=== PATIENT | female | born 1955 | race Caucasian/White ===

== ENCOUNTER 2020-09-17 20:37 | Emergency (ER) | payer MEDICARE, OTHER, SELFPAY ==
[2020-09-17 20:38] VITALS: BP 167/96; PULSE 98; RESP 17; TEMP 36.7; O2SAT 99
--- NOTE | 2020-09-17 20:51 | ECG_ITS ---
Measurements Intervals Barnes Rate: 94 P: 64 NC: 153 QRS: 20 QRSD: 86 T: 40 QT: 348 QTc: 437 Interpretive Statements SINUS RHYTHM BORDERLINE ST ABNORMALITY- DIFFUSE LEADS BORDERLINE ECG Electronically Signed On 09-17-2020 21:31:10 CDT by Bob Coles D.O.
[2020-09-17 21:14] LABS: Basophils Percent Auto 0.6 % (0.2-1.2); Eosinophils Absolute Auto 0.2 K/mm3 (0-0.3); Eosinophils Percent Auto 3.6 % (0-4.4); Hematocrit 35.6 % (37.0-47.0); Hemoglobin 11.9 g/dL (12.0-15.0); Immature Granulocyte Absolute 0.01 K/mm3 (0.00-0.031); Immature Granulocyte Percent A 0.2 % (0-0.5); Lymphocytes Absolute Auto 1.72 K/mm3 (0.9-3.2); Lymphocytes Percent Auto 36.1 % (18.3-44.2); Mean Corpuscular HGB Conc 33.4 g/dl (32-36); Mean Corpuscular Hemoglobin 29.8 pg (26-34); Mean Corpuscular Volume 89.2 fl (80-100); Mean Platelet Volume 9.9 fl (7.4-10.4); Monocytes Absolute Auto 0.3 K/mm3 (0.1-0.6); Monocytes Percent Auto 7.1 % (2.6-8.5); Neutrophils Absolute Auto 2.5 K/mm3 (1.3-6.7); Neutrophils Percent Auto 52.4 % (45.5-73.1); Platelet Count Result 149 k/mm3 (150-375); Red Blood Count 3.99 M/mm3 (4.2-5.4); Red Cell Distribution Width 12.5 % (11.5-14.5); White Blood Count 4.8 K/mm3 (4.5-10.0)
[2020-09-17 21:23] LABS: Anion Gap 9 mmol/L (8-16); Blood Urea Nitrogen 17 mg/dL (7-17); Calcium 9.4 mg/dL (8.4-10.2); Carbon Dioxide 25 mmol/L (22-30); Chloride 106 mmol/L (98-107); Estimated CRCL calculation 45 ml/min; Estimated Glomerular Filt Rate 50; Glucose 111 mg/dL (65-105); Potassium 3.6 mmol/L (3.4-5.0); Sodium 140 mmol/L (137-145)
[2020-09-17 21:27] VITALS: BP 110/78; PULSE 78; RESP 20; O2SAT 100
[2020-09-17] MEDS: SODIUM CHLORIDE 0.9% IV 1,000 ML 999 ML IV CONT (21:40)
[2020-09-17 21:45] VITALS: BP 145/80; PULSE 88
[2020-09-17 21:50] VITALS: BP 168/98; PULSE 87
[2020-09-17 21:54] VITALS: BP 182/95; PULSE 82
--- NOTE | 2020-09-17 22:22 | ED.DIZZY ---
HPI - Dizziness General Chief Complaint: Dizziness Stated Complaint: dizziness Time Seen by Provider: 09/17/20 20:39 History of Present Illness HPI Narrative: Patient is a 64-year-old female who presents ER with lightheadedness. She was at a movie theater and got up to leave when she got lightheaded and thought she might pass out. No racing heart. No nausea/vomiting. Has not had similar symptoms in the past. Recently started metoprolol 25 mg. No chest pain or chest pressure. Patient reports she did not eat lunch or dinner today. She reports otherwise well hydrated. Related Data Allergies Allergy/AdvReac Type Severity Reaction Status Date / Time Cephalosporins Allergy Mild Unknown Verified 03/03/20 12:41 cephalexin Allergy Unknown Skin Verified 03/03/20 12:41 Reaction diclofenac Allergy Unknown Nausea Verified 03/03/20 12:41 nitrofurantoin Allergy Unknown Unknown Verified 03/03/20 12:41 Penicillins Allergy Unknown Skin Verified 03/03/20 12:41 Reaction Review of Systems Review of Systems: All systems reviewed & are unremarkable except as noted in HPI and below Constitutional: Constitutional: Denies chills, Denies fever(s) and Denies weakness ENT: Denies nasal congestion and Denies sore throat Cardiovascular: Cardiovascular: Denies chest pain and Denies radiating jaw, neck or arm pain Gastrointestinal: Gastrointestinal: Denies abdominal pain, Denies nausea and Denies vomiting Neurologic: Reports dizziness, Denies syncope, Denies headache(s), Denies focal weakness and Denies numbness PMFSH Past Medical History Medical History (Updated 09/17/20 @ 22:28 by Woo Mcdaniel MD) Muscle contraction headache syndrome Prehypertension Surgical History Surgical History History of colonoscopy (~03/02/13) History of colonoscopy (~01/26/08) History of dilation and curettage Family History Family History Other Family history of cardiovascular disease Family history of elevated blood lipids Social History Social History Gender identity (if verbalized by the patient): Female Exam Narrative: Exam Narrative: GENERAL: Well-appearing, well-nourished, and in no acute distress. HEAD: Normocephalic, atraumatic. CHEST: Clear to auscultation. No respiratory distress. HEART: Regular rate and rhythm. Normal peripheral pulses. ABDOMEN: Soft, nontender, nondistendeds. EXTREMITIES: Normal range of motion. No edema. SKIN: Warm, dry, no rash. NEURO: Alert and oriented x3. PSYCH: Normal mood and affect. Course Course Emergency Course: Feels improved with IV fluid. Encouraged proper hydration and nourishment at home. Patient did have some nonspecific ST depression but has no chest pain or chest pressure to otherwise indicate ACS. Patient be discharged home. Vital Signs Vital signs: Vital Signs Temperature 98.1 F 09/17/20 20:38 Pulse Rate 98 09/17/20 20:38 Respiratory Rate 17 09/17/20 20:38 Blood Pressure 167/96 H 09/17/20 20:38 Pulse Oximetry 99 09/17/20 20:38 Temperature 98.1 F 09/17/20 20:38 Pulse Rate 82 09/17/20 21:54 Respiratory Rate 20 09/17/20 21:27 Blood Pressure 182/95 H 09/17/20 21:54 Pulse Oximetry 100 09/17/20 21:27 MDM - Dizziness Lab Data Result diagrams: 09/17/20 21:07 09/17/20 21:07 Labs: Lab Results 09/17/20 09/17/20 Range/Units 21:07 21:07 WBC 4.8 (4.5-10.0) K/mm3 RBC 3.99 L (4.2-5.4) M/mm3 Hgb 11.9 L (12.0-15.0) g/dL Hct 35.6 L (37.0-47.0) % MCV 89.2 (80-100) fl MCH 29.8 (26-34) pg MCHC 33.4 (32-36) g/dl RDW 12.5 (11.5-14.5) % Plt Count 149 L (150-375) k/mm3 MPV 9.9 (7.4-10.4) fl Immature Gran % (Auto) 0.2 (0-0.5) % Neut % (Auto) 52.4 (45.5-73.1) % Lymph % (Auto) 36.1 (18.3-44.2) % Brooke % (Auto)
== END 2020-09-17 22:53 | disposition home or self-care (01) ==
PROVIDERS: Emergency Provider Emergency Medicine; PCP Family Medicine
DX: R42 Dizziness and giddiness (principal)
CPT/HCPCS: 36415; 80048; 85025; 93005; 96360; 99284; J7030

== ENCOUNTER → 2021-08-03 15:45 | Outpatient (CLI) | payer MEDICARE, OTHER, SELFPAY ==
--- NOTE | ~2021-08-03 | DEXA_ITS ---
Bone Density Report Name: JOHNSON TSAI Age: 65 Sex: Female Ethnicity: White Date of : 1955 Indication: osteopenia; height loss; prior fracture; postmenopausal Referring Provider: FERNANDO REDDY Study: Bone densitometry was performed. Exam Date: August 03, 2021 Accession number: [id number] Bone Density: Region BMD T-score Z-score Classification AP Spine (L1-L4) 0.984 -0.6 1.4 Normal Femoral Neck (Left) 0.627 -2.0 -0.3 Osteopenia Total Hip (Left) 0.734 -1.7 -0.3 Osteopenia Femoral Neck (Right) 0.630 -2.0 -0.3 Osteopenia Total Hip (Right) 0.696 -2.0 -0.6 Osteopenia Total Hip Mean 0.715 -1.9 -0.5 Osteopenia World Health Organization criteria for BMD impression classify patients as: Normal (T-score at or above -1.0), Osteopenia (T-score between -1.0 and -2.5), or Osteoporosis (T-score at or below -2.5). 10-year Fracture Risk(1): Major Osteoporotic Fracture 18% Hip Fracture 2.8% Reported Risk Factors: [place] (), Neck BMD=0.630, BMI=27.4, previous fracture (1) FRAX(R) Version 3.08. Fracture probability calculated for an untreated patient. Fracture probability may be lower if the patient has received treatment. Previous Exams: Region Exam Age BMD T-score BMD Change BMD Change Date g/cm2 vs Baseline vs Previous AP Spine(L1-L4) 08/03/2021 65 0.984 -0.6 -0.047* -0.047* 02/05/2012 56 1.031 -0.1 Total Hip(Left) 08/03/2021 65 0.734 -1.7 0.001 0.001 02/05/2012 56 0.733 -1.7 Total Hip(Right) 08/03/2021 65 0.696 -2.0 0.021 0.021 02/05/2012 56 0.675 -2.2 *Denotes significance at 95% confidence level, LSC for AP Spine = 0.022 g/cm2, LSC for Total Hip = 0.027 g/cm2 Clinical Information Provided by Patient: Has had a low trauma fracture Has used the following medications: Vitamin D Patient maximum height was 68 Menopause Age: 38 No regular weight bearing exercise Does not regularly consume dairy products Onset of menses at age 13 Number of children 0 Missed period for more than 6 months in a row Impression: The patient has low bone mass, based on the Right Total Hip T-score. The patient has an estimated ten-year risk of hip fracture of 2.8% and an estimated ten-year risk of major fracture of 18%, based on the WHO FRAX algorithm. The patient has risk factors, including: previous fracture. The BMD for the AP Spine(L1-L4) decreased, changing by -0.047 since the last
== END ==
PROVIDERS: PCP Family Medicine; Visit Provider Family Medicine
DX: Z78.0 Asymptomatic menopausal state (principal); M85.852 Other specified disorders of bone density and structure, left thigh; M85.851 Other specified disorders of bone density and structure, right thigh
CPT/HCPCS: 77080

== ENCOUNTER 2024-04-14 07:59 | Outpatient (CLI) | payer MEDICARE, OTHER, SELFPAY ==
--- OUTSIDE RECORDS SUMMARY | 2024-04-14 08:09 | XMS_ITS | Data Portability ---
Author Organization [facility] Address [address] [place] [address] Assessment No assessment recorded. Plan of Treatment Reminders Order Date Submit Date Provider Last Modified By Organization Details Last Modified Time Details Appointments None recorded. Lab culture, urine 2016 017 [facility], [address], [place], [address], 7 10:35:32 urinalysi s, dipstick 2016 017 dante In-Office Order, Internal Use Only DO Not Attach Compendium DO Not Attach Compendium, Do Not Delete/merge, [id number] 7 17:59:59 pap, IG + HPV, cervical 2016 017 [facility], [address] [facility], [address], [place], [address], 7 06:05:37 urinalysi s, dipstick 2018 019 [email or web address] In-Office Order, Internal Use Only DO Not Attach Compendium DO Not Attach Compendium, Do Not Delete/merge, [id number] 9 17:28:12 Referral breast surgery referral 2018 019 [facility], [address] [facility], [facility], [place], [address], 9 13:44:21 Procedures None recorded. Surgeries None recorded. Imaging DEXA 07/22/ 2019 05/04/2 020 [facility], [address], [place], [address], 0 12:24:47 Medication Orders Premarin 0.625 mg/gram vaginal cream 2015 016 INTERFACE [facility], [address] [place] [address], [address], 6 18:41:25 Activella 0.5 mg-0.1 mg tablet 2016 017 [email or web address] [facility], [address] [place] [address], [address], 9 16:52:59 raloxifen e 60 mg tablet 2018 019 [facility], [address] [place] [address], [address], 9 17:45:53 Premarin 0.625 mg/gram vaginal cream 2018 019 [facility], [address] [place] [address], [address], 9 17:05:53 ibandrona te 150 mg tablet 2018 019 [facility], [address] [place] [address], [address], 9 17:55:53 Patient TargetsNo targets recorded. Patient Instructions Encounter Date Encounter Id Patient Instructions Last Modified By Organization Details Last Modified Time 06/29/2015 [id number] atrophic vaginitis: care instructions dante Not available 06/29/2015 18:41:15 osteoporosis: care instructions dante Not available 06/29/2015 18:41:15 07/21/2018 [id number] Core Needle Breast Biopsy: About This Test dante Not available 07/21/2018 17:28:12 10/06/2018 [id number] osteoporosis: care instructions dante Not available 10/06/2018 17:01:18 Reason for Referral Breast Surgery Referral for Mammography abnormal Referring Physician: Melania Mora, ACETYLENE OPERATOR, Encounter Date: 07/21/2018 Results Created Date Observation Date Name Description Value Unit Range Abnormal Flag Note LastModifiedBy Organization Detail LastModifiedTime 07/22/19 19 07/21/2018 urina lysis , dipst ick Leukocytes Small Not Available In-Offi ce Order Internal Use Only DO Not Attach Compendium DO Not Attach Compendium, Do Not Delete/merge, [id number] 07/21/2018 17:06:10 07/22/1907/21/2018 urina lysis , dipst ick Nitrite negati ve Not Available In-Office Order Internal Use Only DO Not Attach Compendium DO Not Attach Compendium, Do Not Delete/merge, 07/21/2018 17:06:10 07/22/1907/21/2018 urina lysis , dipst ick Urobilinogen .2 Not Available In-Of fice Order Internal Use Only DO Not Attach Compendium DO Not Attach Compendium, Do Not Delete/merge, 07/21/2018 17:06:10 07/22/1907/21/2018 urina lysis , dipst ick Protein Negati ve Not Available In-Office Order Internal Use Only DO Not Attach Compendium DO Not Attach Compendium, Do Not Delete/merge, 07/21/2018 17:06:10 07/22/1907/21/2018 urina lysis , dipst ick pH 5.0 Not Available In-Office Order Internal Use Only DO Not Attach Compendium DO Not Attach Compendium, Do Not Delete/merge, 07/21/2018 17:06:10 07/22/1907/21/2018 urina lysis , dipst ick Blood Negati ve Not Available In-Office Order Internal Use Only DO Not Attach Compendium DO Not Attach Compendium, Do Not Delete/merge, 07/21/2018 17:06:10 07/22/1907/21/2018 urina lysis , dipst ick Specific [facility] 1.030 Not Available In-Off ice Order Internal Use Only DO Not Attach Compendium DO Not Attach Compendium, Do Not Delete/merge, 07/21/2018 17:06:10 07/22/19 19 07/21/2018 urina lysis , dipst ick Ketone Trace Not Available In-Office Order Internal Use Only DO Not Attach Compendium DO Not Attach Compendium, Do Not Delete/merge, 07/21/2018 17:06:10 07/22/19 19 07/21/2018 urina lysis , dipst ick Bilirubin Negati ve Not Available In-Office Order Internal Use Only DO Not Attach Compendium DO Not Attach Compendium, Do Not Delete/merge, 07/21/2018 17:06:10 07/22/19 19 07/21/2018 urina lysis , dipst ick Glucose Negati ve Not Available In-Office Order Internal Use Only DO Not Attach Compendium DO Not Attach Compendium, Do Not Delete/merge, 07/21/2018 17:06:10 06/28/19 17 06/27/2016 urina lysis , dipst ick Leukocytes Small Not Available In-Offi ce Order Internal Use Only DO Not Attach Compendium DO Not Attach Compendium, Do Not Delete/merge, 06/27/2016 17:20:39 06/28/19 17 06/27/2016 urina lysis , dipst ick Nitrite negati ve Not Available In-Office Order Internal Use Only DO Not Attach Compendium DO Not Attach Compendium, Do Not Delete/merge, 06/27/2016 17:20:39 06/28/19 17 06/27/2016 urina lysis , dipst ick Urobilinogen .2 Not Available In-Of fice Order Internal Use Only DO Not Attach Compendium DO Not Attach Compendium, Do Not Delete/merge, 06/27/2016 17:20:39 06/28/19 17 06/27/2016 urina lysis , dipst ick Protein Negati ve Not Available In-Office Order Internal Use Only DO Not Attach Compendium DO Not Attach Compendium, Do Not Delete/merge, 06/27/2016 17:20:39 06/28/19 17 06/27/2016 urina lysis , dipst ick pH 6.0 Not Available In-Office Order Internal Use Only DO Not Attach Compendium DO Not Attach Compendium, Do Not Delete/merge, [id number] 06/27/2016 17:20:39 06/28/19 17 06/27/2016 urina lysis , dipst ick Blood Negati ve Not Available In-Office Order Internal Use Only DO Not Attach Compendium DO Not Attach Compendium, Do Not Delete/merge, [id number] 06/27/2016 17:20:39 06/28/19 17 06/27/2016 urina lysis , dipst ick Specific [facility] 1.030 Not Available In-Off ice Order Internal Use Only DO Not Attach Compendium DO Not Attach Compendium, Do Not Delete/merge, [id number] 06/27/2016 17:20:39 06/28/19 17 06/27/2016 urina lysis , dipst ick Ketone Trace Not Available In-Office Order Internal Use Only DO Not Attach Compendium DO Not Attach Compendium, Do Not Delete/merge, 06/27/2016 17:20:39 06/28/19 17 06/27/2016 urina lysis , dipst ick Bilirubin Negati ve Not Available In-Office Order Internal Use Only DO Not Attach Compendium DO Not Attach Compendium, Do Not Delete/merge, 06/27/2016 17:20:39 06/28/19 17 06/27/2016 urina lysis , dipst ick Glucose Negati ve Not Available In-Office Order Internal Use Only DO Not Attach Compendium DO Not Attach Compendium, Do Not Delete/merge, 06/27/2016 17:20:39 06/28/19 17 07/02/2016 pap, IG + HPV, cervi arthur diagnosis: COMMEN T NEGAT JAYNA FOR INTRA EPITH ELIAL LESIO N AND KUMAR WELDON . Not Available [facility] ([facility]) [address] [facility], [place], [address], 07/04/2016 06:05:37 06/28/19 17 07/02/2016 pap, IG + HPV, cervi arthur specimen adequacy: COMMEN T SATIS FACTO RY FOR EVALU ATION . NO ENDOC ERVIC AL COMPO NENT IS IDENT IFIED . Not Available [facility] ([facility]) [address] [facility], [place], [address], 07/04/2016 06:05:37 06/28/1907/02/2016 pap, IG + HPV, cervi arthur clinician provided ICD10: CURLY Martines Z01.4 19 N39.0 Not Available [facility] ([facility]) [address] [place], [address], 07/04/2016 06:05:37 06/28/1907/02/2016 pap, IG + HPV, cervi arthur performed by: CURLY SHERWOOD , CYTOJj Martines (ASCP ) Not Available [facility] ([facility]) [address] [place], [address], 07/04/2016 06:05:37 06/28/1907/02/2016 pap, IG + HPV, cervi arthur . . Not Available [facility] ([facility]) [address] [place], [address], 07/04/2016 06:05:37 06/28/1907/02/2016 pap, IG + HPV, cervi arthur note: CURLY Martines THE PAP SMEAR IS A SCREE AMANDA TEST DESIG EDGAR TO AID IN THE DETEC TION OF TRI LIGNA NT AND MALIG NANT CONDI TIONS OF THE UTERI NE CERVI X. IT IS NOT A DIAGN OSTIC PROCE DURE AND SHOUL D NOT BE USED THE SOLE MEANS OF DETEC TING CERVI ARTHUR CANCE R. BOTH FALSE -POSI TIVE AND FALSE -NEGA TIVE REPOR TS DO OCCUR . Not Available [facility] ([facility]) [address] [place], [address], 07/04/2016 06:05:37 06/28/1907/02/2016 pap, IG + HPV, cervi arthur test methodology: CURLY Martines THIS LIQUI D BASED THINP REP(R ) PAP TEST WAS SCREE EDGAR WITH THE USE OF AN IMAGE GUIDE Niecy Marquez. Not Available [facility] ([facility]) [address] [place], [address], 07/04/2016 06:05:37 06/28/19 17 07/03/2016 pap, IG + HPV, cervi arthur HPV aptima NEGATI VE negati ve THIS TEST DETEC TS FOURT EEN HIGH- RISK HPV TYPES (16/1 8/31/ 33/35 /39/4 5/ 51/52 /56/5 8/59/ 66/68 ) WITHO UT DIFFE RENTI ATION . Not Available [facility] ([facility]) [address] [facility], [place], [address], 07/04/2016 06:05:37 06/29/19 17 07/01/2016 cultu re, urine urine culture, routine FINAL REPORT abnormal Not Available [facility] ([facility]) [address] [facility], [place], [address], 07/01/2016 10:35:32 06/29/19 17 07/01/2016 cultu re, urine result 1 COMMEN T abnormal COAGU LASE NEGAT JAYNA STAPH YLOCO CCUS SPECI ES, NOT STAPH YLOCO CCUS SAPRO PHYTI CUS. 25,00 0-50, 000 COLON Y FORMI NG UNITS PER ML BASED ON RESIS TANCE TO PENIC ILLIN AND SUSCE PTIBI LITY TO OXACI LLIN THIS ISOLA TE WOULD BE SUSCE PTIBL E TO: * PENIC ILLIN ASE-S TABLE PENIC ILLIN S; SUCH : CLOXA CILLI N DICLO XACIL JERMAINE NAFCI LLIN * BETA- LACTA M/BET A-LAC RAFAT E INHIB ITOR COMBI NATIO NS; SUCH : AMOXI CILLI N-CLA VULAN IC ACID AMPIC ILLIN -SULB ACTAM * ANTIS TAPHY LOCOC ARTHUR CEPHE MS; SUCH : CEFAC PARKER CEFUR OXIME * ANTIS TAPHY LOCOC ARTHUR CARBA PENEM S; SUCH : IMIPE NEM MEROP ENEM Not Available [facility] ([facility]) [address] [facility], [place], [address], 07/01/2016 10:35:32 06/29/19 17 07/01/2016 cultu re, urine antimicrobia l susceptibili ty COMMEN T S = SUSCE PTIBL E; I = INTER MEDIA TE; R = RESIS TANT P = POSIT JAYNA; N = NEGAT JAYNA MICS ARE EXPRE SSED IN MICRO GRAMS PER ML ANTIB IOTIC RSLT# 1 RSLT# 2 RSLT# 3 RSLT# 4 CIPRO FLOXA NITIN S GENTA MICIN S LEVOF LOXAC IN S NITRO FURAN TOIN S OXACI LLIN S PENIC ILLIN R RIFAM PIN S TETRA CYCLI NE S TRIME THOPR IM/GUERRERO LFA S VANCO MYCIN S Not Available [facility] ([facility]) [address] [facility], [place], [address], 07/01/2016 10:35:32 06/02/19 16 06/02/2015 mamsb w PT NAME: QUINGarrett Connolly : 1955 PT SEX/AG E: F/61 PT ACCT NUMBER : [id number] PT MR#: [id number] ROOM/B ED: PT STATUS : REG CLI DATE OF EXAMIN ATION: ORDERI PHYSIC BRANDON: MELANIA DE LA CRUZ MAN M.Quintin ATTEND [facility] PHYSIC BRANDON: MELANIA DE LA CRUZ MAN , M.D. DICTAT [facility] PHYSIC BRANDON: Jj STAFFORD M.D. 012 DIGITA L MAMM SCREEN -BRIANNA INDICA TION: Screen ing TECHNI QUE: Digita l MLO and CC views. Rotate d latera l CC views. Comput er aided detect ion was perfor med and review ed. COMPAR REKHA: [facility] bilate ral Digita l screen ing mammog brandin DENSIT Y: There is hetero geneou sly dense breast tissue , which may obscur e small masses . FINDIN GS: No domina nt mass lesion or albert ectura l distor tion, malign ant calcif icatio n, skin thicke amanda or retrac tion or signif icant new or develo ping densit y is detect ed. IMPRES SIONS: BIRADS Catego ry 1: Negati ve No signif icant change since RECOMM ENDATI ONS: Routin e mammog raphic screen ing Review ed, dictat ed and finali zed at [facility]. __ Electr onical ly signed by: EDUARDO STAFFORD Date: Time: 13:13 EDUARDO STAFFORD M.D.__ ___ Evelyn montalvo Madonna g, [facility] [address] [facility] [address] [place] [address] [facility] (Imaging) [address] [place] [address] [address], [place], [address], 06/29/2015 17:31:53 06/03/19 16 06/03/2015 briani regina/yuval martines No observ ation record ed. sugar Not Available 06/28 17:31:53 06/08/19 17 06/06/2016 mamsb w PT NAME: Garrett TSAI : 1955 PT SEX/AG E: F/ PT ACCT NUMBER : [id number] PT MR#: [id number] ROOM/B ED: PT STATUS : REG CLI DATE OF EXAMIN ATION: ORDERI PHYSIC BRANDON: MELANIA DE LA CRUZ MAN MEsdras ATTEND ING PHYSIC BRANDON: MELANIA DE LA CRUZ MAN , MEsdras DICTAT [facility] PHYSIC BRANDON: Jj GODOY M.D. 024 [id number] 7.001M IX 16:40: 00 61.020 8[facility] ([facility]) : DIGITA L RUDDY SCREEN - BRIANNA INDICA TION: Screen ing. TECHNI QUE: Screen ing digita l mammog brandin submit ashanti. CAD analys is submit ashanti and interp reted. COMPAR REKHA: Compar rekha to multip le prior studie s. The oldest study review ed is 2012. FINDIN GS: There has been no signif icant change when compar rekha was made to prior films. The breast s are hetero genous ly dense, which may obscur e small masses . No mammog raphic eviden ce for malign chano in either breast . Regula r clinic al breast examin ation in annual mammog yovanny are recomm ended. IMPRES OSIEL: 1: NO MAMMOG RAPHIC EVIDEN CE OF MALIGN CHANO IN EITHER BREAST AND NO CHANGE . RECOMM ENDATI ON: Routin e yearly screen ing mammog brandin and regula r clinic al breast examin ation are recomm ended. BI-RAD S CATEGO RY 1 - NEGATI VE __ Review ed, dictat ed and finali zed at [facility]. __ Electr onical ly signed by: ADIRAN GODOY Date: Time: 22:24 ADRIAN GODOY M.D.__ ___ [facility], [facility] [address] [facility] [address] [place] [address] [facility] (Imaging) [address], [place], [address], 10/06/2018 17:30:03 06/08/19 17 06/06/2016 MAMMO lucero, bilat eral No observ ation record ed. [facility] [address], [place], [address], 10/06/2018 17:30:03 06/19/19 18 06/17/2017 MAMMO lucero, bilat eral No observ ation record ed. [email or web address] [address], [place], [address], 06/25/2017 09:21:41 06/28/1906/26/2018 MAMMO lucero, bilat eral No observ ation record ed. [facility] [address], [place], [address], 07/03/2018 10:12:21 06/28/1906/26/2018 imagi ng/di agnos tic resul t No observ ation record ed. [facility] [address], [place], [address], 10/06/2018 17:30:03 07/16/19 19 07/15/2018 US, breas t, unila teral No observ ation record ed. [address] [facility] [address], [place], [address], 07/16/2018 11:50:28 07/16/19 19 07/15/2018 US, breas t, unila teral No observ ation record ed. [address] [facility] [address], [place], [address], 07/16/2018 11:57:46 07/16/19 19 07/15/2018 MAMMO , diagn ostic , digit al, unila teral No observ ation record ed. [address] [facility] [address], [place], [address], 07/16/2018 11:50:28 09/16/19 19 07/15/2018 MAMMO , diagn ostic , digit al, unila teral No observ ation record ed. [facility] [address], [place], [address], 10/06/2018 17:30:03 Result Notes None recorded. Problems Name Problem SNOMED Code Status Onset Date Resolution Date Notes Provider Name and Address Organization Details Recorded Time Mammography finding 157732127 Completed 201806/28/2018 Melania krishna, [place] - [place] 9 10:08:48 Menopausal syndrome 921426467 Active Melania krishna, [place] - [facility] 6 18:56:40 Osteoporosi s 39643072 Active Melania krishna, [place] - [place] 6 18:56:40 Atrophic vaginitis 40716304 Active Melania krishna, [facility] 6 18:41:23 Problem Notes None recorded. Procedures Surgical History Date Name Laterality Status Provider Name and Address Organization Details Recorded Time 9 Most Recent Mammogram completed Kaylie Valiente MA [facility] 10/06/2018 16:51:18 7 Date of Last Pap Smear completed Kaylie Valiente MA [facility] 10/06/2018 16:51:34 Endometrial Ablation completed Thu Washington MA [facility] 06/29/2015 17:14:25 Orthopedic Surgery completed Thu Washington MA [facility] 06/29/2015 17:14:25 Other completed Thu Washington MA [facility] 06/29/2015 17:14:25 Imaging Results Imaging Date Name Status LastModified by Organiz ation Details LastModified Time 06/02/2015 mams completed [facility] (Imaging) [address] [place] [address] [place] [address], [address], 06/29/2015 17:31:53 06/03/2015 imaging/diagnos tic result completed [facility] Information not available 06/29/2015 17:31:53 06/06/2016 [facility] active [facility] (Imaging) [facility] [address] [place] [address], [address], 10/06/2018 17:30:03 06/06/2016 MAMMO, screening, bilateral active [facility] [address], [place], [address], 10/06/2018 17:30:03 06/17/2017 MAMMO, screening, bilateral completed [email or web address] [facility] [address], [place], [address], 06/25/2017 09:21:41 06/26/2018 MAMMO, screening, bilateral completed [email or web address] [facility] [address], [place], [address], 07/03/2018 10:12:21 06/26/2018 imaging/diagnos tic result active [facility] [address], [place], [address], 10/06/2018 17:30:03 07/15/2018 US, breast, unilateral completed [facility] [address], [place], [address], 07/16/2018 11:50:28 07/15/2018 US, breast, unilateral completed [facility] [address], [place], [address], 07/16/2018 11:57:46 07/15/2018 MAMMO, diagnostic, digital, unilateral completed [facility] [address], [place], [address], 07/16/2018 11:50:28 07/15/2018 MAMMO, diagnostic, digital, unilateral completed [facility] [address], [place], [address], 10/06/2018 17:30:03 Procedure Notes None recorded. Medical Equipment None Reported. Allergies Allergen ID Allergen Name Allergen Category Reaction Reaction Severity Criticality Documentation Date Start Date Code Code System Note Provider Name and Address Organization Details Recorded Time [id number] 74173 Keflex medicatio n hives severe Not available 06/29/201572161 7 RxNorm Not Available Not Available Not Available [id number] [id number] 2824e Product containin g penicilli n and antibioti c (product) medicatio n Not available Not available Not available 06/29/2015 45996 05 SNOMED Not Available Not Available Not Available Medications Name Sig Start Date Stop Date Status Note LastModified by Organization Details LastModified Time Prescription - Renewal 10/06 completed Not Available Not Available Not Available Prescription - Prior Authorizatio n Request 10/06 completed Not Available Not Available Not Available cyclobenzapr ine 10 mg tablet active Not Available Not Available Not Available paroxetine 10 mg tablet Take 1 tablet every day by oral route. 2018 active Not Available Not Available Not Avai lable atorvastatin 10 mg tablet active Not Available Not Available Not Available benzonatate 200 mg capsule 10/06 completed Not Available Not Available Not Available valacyclovir 1 gram tablet active Not Available Not Available Not Available meloxicam 15 mg tablet active Not Available Not Available No t Available metronidazol e 0.75 % (37.5 mg/5 gram) vaginal gel INSERT 1 APPLICAT OR(S)FUL EVERY DAY BY VAGINAL ROUTE AT BEDTIME FOR 5 DAYS. 10/06 completed Not Available Not Available Not Available triamterene 37.5 mg-hydrochlo rothiazide 25 mg capsule TAKE 1 DAILY 10/06 completed Not Available Not Available Not Available butalbital-a cetaminophen -caffeine 50 mg-325 mg-40 mg tablet active Not Available Not Available No t Available triamterene 37.5 mg-hydrochlo rothiazide 25 mg tablet active Not Available Not Available Not Available isomethepten e-dichloralp hen-acetamin ophen 65 mg-100 mg-325 mg capsule 10/06 completed Not Available Not Available Not Available raloxifene 60 mg tablet Take 1 tablet every day by oral route. active Not Available Not Available No t Available metoprolol succinate ER 25 mg tablet,exten ded release 24 hr active Not Available Not Available Not Available betamethason e dipropionate 0.05 % lotion 10/06 completed Not Available Not Available Not Available metaxalone 800 mg tablet active Not Available Not Available Not Available Premarin 0.625 mg/gram vaginal cream Insert 1 g twice a week by vaginal route. 2018 active Not Available Not Available Not Avai lable nitrofuranto in monohydrate/ macrocrystal s 100 mg capsule Take 1 capsule every 12 hours by oral route for 10 days. 10/06 completed Not Available Not Available Not Available ibandronate 150 mg tablet TAKE 1 TABLET(S ) EVERY MONTH BY ORAL ROUTE. active Not Available Not Available No t Available Zostavax (PF) 19,400 unit/0.65 mL subcutaneous suspension 10/06 completed Not Available Not Available Not Available olopatadine 0.2 % eye drops active Not Available Not Available Not Available estradiol-no rethindrone acet 0.5 mg-0.1 mg tablet TAKE ONE TABLET BY MOUTH EVERY DAY 10/06 completed Not Available Not Available Not Available Breo Ellipta 100 mcg-25 mcg/dose powder for inhalation 06/27 completed Not Available Not Available Not Available Brisdelle 7.5 mg capsule Take 1 capsule every day by oral route. 2018 active Not Available Not Available Not Avai lable Virtussin AC 10 mg-100 mg/5 mL oral liquid 10/06 completed Not Available Not Available Not Available Fluvirin 9328-0892 45 mcg (15 mcg x 3)/0.5 mL intramuscula r suspension active Not Available Not Available Not Available Fluarix Quad 6518-2821 (PF) 60 mcg (15 mcg x 4)/0.5 mL IM syringe 10/06 completed Not Available Not Available Not Available Shingrix (PF) 50 mcg/0.5 mL intramuscula r suspension, kit active Not Available Not Available Not Available Fluarix Quad (PF) 60 mcg (15 mcg x 4)/0.5 mL IM syringe 10/06 completed Not Available Not Available Not Available Flucelvax Quad (PF) 60 mcg (15 mcg x 4)/0.5 mL IM syringe active Not Available Not Available Not Available Vitals Date Recorded Body weight Provider Name an d Address Organization Details Last Updated DateTime 07/21/2018 66534.26 g Pietro Connell MA [facility] 07/21 16:59:45 Date Recorded Body weight Provider Name an d Address Organization Details Last Updated DateTime 10/06/2018 93166.45 g Kaylie Valiente MA [facility] 2018 16:52:03 Date Recorded Body mass index (BMI) Body height Provider Name and Address Organization Details Last Updated DateTime 10/06/2018 23 kg/m2 172.72 cm Kaylie Valiente MA [facility] 10/06/2018 16:52:07 Date Recorded Body height Provider Name an d Address Organization Details Last Updated DateTime 06/29/2015 165.1 cm Thu [place] MA [facility] 06/29/2015 17:00:03 Date Recorded Body mass index (BMI) Body weight Provider Name and Address Organization Details Last Updated DateTime 06/29/2015 26.6 kg/m2 31515.7792 g Thu [place] MA [facility] 06/29/2015 17:14:25 Date Recorded Body height Provider Name an d Address Organization Details Last Updated DateTime 06/27/2016 165.1 cm Thu [place] MA [facility] 06/27/2016 16:01:45 Date Recorded Body weight Body mass index (BMI) Provider Name and Address Organization Details Last Updated DateTime 06/27/2016 04474.86 g 25 kg/m2 Maliha LEANA Treviño [facility] 06/27/2016 16:10:06 Date Recorded Systolic blood pressure Diastolic blood pressure Provider Name and Address Organization Details Last Updated DateTime 07/21/2018 130 mm[Hg] 90 mm[Hg] Pietro Connell MA [facility] 07/21/2018 17:01:16 Date Recorded Systolic blood pressure Diastolic blood pressure Provider Name and Address Organization Details Last Updated DateTime 10/06/2018 118 mm[Hg] 82 mm[Hg] Kaylie Valiente MA [facility] 10/06/2018 16:57:01 Date Recorded Systolic blood pressure Diastolic blood pressure Provider Name and Address Organization Details Last Updated DateTime 06/29/2015 130 mm[Hg] 70 mm[Hg] Thu [place] MA [facility] 06/29/2015 17:15:38 Social History Question Answer Notes LastModified by Organizat ion Details LastModified Time Tobacco Smoking Status Never Smoker Thu [place] null, [facility] 06/29/2015 17:03:11 Do You Have An Advance Directive? No Information not available 06/29/2015 What Is Your Level Of Alcohol Consumption? None Information not available 06/29/2015 What Is Your Level Of Caffeine Consumption? Occasional Information not available 06/29/2015 How Much Tobacco Do You Chew? None Information not available 06/29/2015 Are You Currently Employed? Yes Information not available 06/29/2015 What Type Of Diet Are You Following? REGULAR Information not available 06/29/2015 Which Illicit Or Recreational Drugs Have You Used? None Information not available 06/29/2015 Education 12 Information no t available 06/29/2015 What Is Your Occupation? Lela Mendoza [email or web address] Information not available 06/27/2016 Live Alone Or With Others? With Others Information not available 06/29/2015 What Was The Date Of Your Most Recent Tobacco Screening? 10/06/2018 Information not available 10/09/2018 How Many Children Do You Have? 0 Information not available 06/29/2015 Performs Monthly Self-breast Exam? Yes Information no t available 06/29/2015 Do You Use Protection During Sex? No Information not available 06/29/2015 What Is Your Relationship Status? Information not available 06/29/2015 Seat Belts Used Routinely Yes Information not available 06/29/2015 Are You Sexually Active? Yes Information not available 06/29/2015 General Stress Level Low Information not available 06/29/2015 Do You Use Sunscreen Routinely? No Information not available 06/29/2015 Sex: Unknown Functional Status Question Answer Note LastModified by Organizat ion Details LastModified Time What is your exercise level? Occasional Information not available 06/29/2015 Mental Status None recorded. Family History Relationship Description Onset Age of this Age Resolved Age Notes LastModified by Organization Details LastModified Time Mother Esperanza howell Not available 06/28 17:31:27 Brother Esperanza howell Not available 06/28 17:31:27 Medical History Condition Response Other N High Blood Pressure N Breast Cancer N Thyroid Problems N Kidney or Bladder Problems N Lung Disease N Depression N Blood Clots N GI Problems N Acne N Eating Disorder N Breast Problem N Anemia N Anesthesia Complications N Headaches/Migraines N Anxiety Disorder N Ovarian Cancer N Diabetes N Muscle, Joint, or Bone Problems N Blood Transfusions N Seizures/Epilepsy N Infertility N Polyps N Acid Reflux (GERD) N Cancer N Abuse/Domestic Violence N Asthma N Endometriosis N High Cholesterol N Hepatitis N Liver Disease N Heart Disease N Pre-Eclampsia N Osteoporosis Y Gynecological History Statement/Question Response Abnormal Pap N Sexually Active? Y On BCP's at Conception? N Menses Monthly N STIs/STDs N HPV Vaccine N Date of Last Pap Smear 06/27/2016 Sexual Problems? 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) [address] [place] [address] [phone] 06/29/2015 15:51:34 06/29/2015 18:41:54 Menopausal syndrome 513247369 N95.9 Osteoporosis 88819195 M8 1.0 Atrophic vaginitis 77392 000 N95.2 [id number] [facility] [address] [place] [address] [phone] 06/27/2016 15:30:07 06/27/2016 16:54:49 Gynecologic examination 95969775 Z01.419 Acute urin julio césar tract infection 692518975 N39.0 [id number] [facility]AC[facility] [address] [place] [address] [id number] 07/21/2018 16:42:47 07/22/2018 16:30:29 Mammography abnormal 030970151 R92.8 [id number] [facility]AC[facility]E [facility]PERATOR[facility] [address] [place] [address] [phone] 10/06/2018 16:05:50 10/09/2018 12:38:59 Atrophic vaginitis 82064015 N95.2 Menopausal syndrome 1237 25851 N95.9 Osteoporosis 61730125 M8 1.0 Health Concerns Section Related Observation LastModified by Organization Detai ls LastModified Time None Recorded Concern Status LastModified by Organization Details LastModified Time None Recorded Advance Directives Directive N: Payers Encounter Date Sequence Insurance Name Policy Number Policy Murphy Covered Member ID Murphy Member ID Guarantor Name 06/29/2015 1 [place] [id number] Priti Tsai [id number] Priti Tsai 06/29/2015 3 [facility] 655 (PPO) [id number] Priti Merida [id number] Priti Merida 06/27/2016 1 [place] [id number] [id number] Priti [facility] 06/27/2016 2 [employer] [facility] [id number] Priti Merida [id number] Priti Merida 07/21/2018 1 [place] [id number] [facility]riti [id number] Priti [facility] 07/21/2018 1 [facility] [id number] Priti [facility] [id number] Priti [facility] 10/06/2018 1 [place] [id number] [facility]riti [facility] [id number] Priti [facility] 10/06/2018 1 [facility] [id number] Priti [facility] [id number] Priti Merida Notes Date Note Type Note Provider Name and Address Organization Details Recorded Time 06/29/2015 text/html Annual GYNReport ed bypatient.Menstrua l cycle:Normal menses Urinary symptoms:No hematuria; No incontinence Vulva:No genital lesion Vagina:Normal vaginal discharge Breast:No breast pain; No breast lump; No nipple discharge Sexual complaints:No sexual complaints; No pain during intercourse; Normal libido Menopausal Symptoms:No menopausal symptoms; Normal vaginal lubrication Psychological symptoms:No depression; No anxiety; No PMDD YASEMIN Ambriz SI 06/29/2015 18:41:32 06/27/2016 text/html 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 Post-MenopausalRep orted bypatient.Menopaus al Symptoms:no menopausal symptoms; normal vaginal lubrication Vaginal Bleeding:history of menopause having occurred; no history of post menopausal bleeding Urinary Symptoms:no hematuria; no incontinence; no nocturia; no urinary frequency Vulva:no genital lesion; no vulvar atrophy Vagina:normal vaginal discharge; no vaginal atrophy Breast:no breast lump; no nipple discharge; no breast pain Sexual Complaints:no sexual complaints Psychological Symptoms:no depression; no anxiety 60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 No complaints today. YASEMIN Ambriz SIShannon 07/22/2018 15:46:03 10/06/2018 text/html Annual GYNReport ed bypatient.Menstrua l cycle:Normal menses Urinary symptoms:No hematuria; No incontinence Vulva:No genital lesion Vagina:Normal vaginal discharge Breast:No breast pain; No breast lump; No nipple discharge Sexual complaints:No sexual complaints; No pain during intercourse; Normal libido Menopausal Symptoms:No menopausal symptoms; Normal vaginal lubrication Psychological symptoms:No depression; No anxiety; No PMDD Priti is a 63 yo F with h/o menopausal syndrome, atrophic vaginitis, and osteoporosis who presents today for annual WWE. She recently was seen at [facility] for breast imaging follow-up and was reassured there were no concerning findings and no biopsy was needed.She requests refills on her medications. YASEMIN Ambriz SI 10/09/2018 12:26:57 OBGyn Episode No OBEpisode recorded.
--- OUTSIDE RECORDS SUMMARY | 2024-04-14 08:09 | XMS_ITS | Clinical Summary ---
Author Organization [facility] Virtual Care Address [address] [place] [phone] Phone Care Team Providers Care County Manager Name Role Phone Danis Mora MD Unavailable Ariela Fowler MD Primary Care Provider + Allergies Active Allergy Reactions Criticality Noted Date Comments Cephalexin Hives High 08/15/2018 Iodinated Contrast Media Hives Medium 08/22/2021 Penicillins Hives Medium 08/15/2018 Medications atorvastatin (LIPITOR) 10 mg tablet Take 1 tablet (10 mg total) by mouth daily Active multivitamin capsule Take 1 capsule by mouth daily Active acidophilus-pecti n, citrus 100 million cell-10 mg capsule Take by mouth Active metoprolol XL (TOPROL-XL) 25 mg extended release tablet Take 1 tablet (25 mg total) by mouth daily Active cetirizine (ZyrTEC) 10 mg tablet Take 1 tablet (10 mg total) by mouth daily Active valACYclovir (VALTREX) 500 mg tablet Take 2 tablets (1,000 mg total) by mouth daily as needed Active aspirin 81 mg chewable tablet Take 1 tablet (81 mg total) by mouth daily Active ascorbic acid (VITAMIN C) 1,000 mg tablet Take 1 tablet (1,000 mg total) by mouth daily Active calcium carbonate-vitamin D3 (Calcium 600 with Vitamin D3) 1,500 mg (600 mg elemental)-500 unit capsule Take by mouth Active vitamin K2 40 mcg tablet Take by mouth Active losartan (COZAAR) 25 mg tabletIndications :Coronary artery disease involving [place] coronary artery of mak[place] heart without angina pectoris,Essentia l hypertension Take 1 tablet (25 mg total) by mouth daily 90 tablet 3 4 11/21/19 25 Active Active Problems Problem Noted Date Diagnosed Date Coronary artery disease invo lving makah coronary artery of makah heart without angina pectoris 11/06/2022 Palpitations 11/07/2020 Dizziness 11/07/2020 Equivocal stress test 11/07/2020 Hyperlipidemia LDL goal <100 11/07/2020 Essential hypertension 11/07/2020 Abnormal EKG 11/07/2020 Abnormal mammogram 08/15/2018 Encounters Date Type Department Care Team Description 02/29/2024 9:29 AM ELECTROLESS PLATER - 02/29/2024 11:59 PM ELECTROLESS PLATER Hospital Encounter [facility] Advanced Medicine Breast Imaging [facility] Advanced Medicine ([facility]) [facility] [place] [address] Screening mammogram, encounter for Discharge Disposition: Discharge to home or self care from Last 3 Months Surgical History Surgery Date Site/Laterality Comments WRIST FRACTURE SURGERY Medical History Medical History Date Comments Frequent headaches Arthritis Hypertension Hyperlipidemia Anxiety Family History Medical History Relation Name Comments Diabetes Brother 1 Heart disease Brother 2 Dementia Mother Lung cancer Mother Relation Name Status Comments Brother 1 Alive Brother 2 Alive Brother 3 Alive Brother 4 Alive Mother (Age 83) Social History Tobacco Use Types Packs/Day Years Used Date Smoking Tobacco: Never Smokeless Tobacco: Never Tobacco Cessation:Counseling Given: Not Answered Alcohol Use Standard Drinks/Week Comments Never 0 (1 standard drink = 0.6 oz pur e alcohol) AUDIT-C Answer Date Recorded Frequency of Alcohol Consumption Never 08/15/2018 Average Number of Drinks Not on file 019 Frequency of Binge Drinking Not on file 07/18 Comments No Sex and Gender Information Value Date Recorded Sex Assigned at Not on file Legal Sex Female 11:59 PM ELECTROLESS PLATER Gender Identity Not on file Sexual Orientation Not on file Obstetrics History Last Filed Vital Signs Vital Sign Reading Time Taken Comments Blood Pressure 132/80 11/21/2023 7:59 AM CDT Pulse 77 11/21/2023 7:59 AM CDT Temperature - - Respiratory Rate - - Oxygen Saturation 99% 11/21/2023 7:59 AM CDT Inhaled Oxygen Concentration - - Weight 73.5 kg (162 lb) 11/21/2023 7:59 AM CDT Height 172.7 cm (5' 8 ) 11/21/2023 7:59 AM CDT Body Mass Index 24.63 11/21/2023 7:59 AM CDT Plan of Treatment Health Maintenance Due Date Last Done Comments Colon Cancer Screening-Colonoscopy 1955 Depression Screening 1955 Fall Risk Assessment 1955 Hepatitis C Screening 1955 DTaP/Tdap/Td Vaccine (1 - Tdap) 1964 Hepatitis B Screening 09/20/1971 Zoster Vaccine (1 of 2) 09/20/2003 Pneumococcal vaccine 65+ (1 of 1 - PCV) 2018 Well Visit 65+ 2018 Osteoporosis Screening-Bone Density Scan 07/19/2021 07/20/2019 Influenza Vaccine (#1) 2023 9, 12/09/2017, 12/03/2017, Additional history exists Breast Cancer Screening-Mammogram 02/28/2025 02/29/2024, 01/29/2023, 01/27/2022, Additional history exists Procedures Procedure Name Priority Date/Time Associated Diagnosis Comments SCREENING MAMMOGRAM BILATERAL W LETY Schedule Routine, Read Routine (OP Routine) 02/29/2024 9:41 AM ELECTROLESS PLATER Screening mammogram, encounter for from Last 3 Months Results * Screening Mammogram Bilateral W Lety (02/29/2024 9:41 AM ELECTROLESS PLATER) Anatomical Region Laterality Modality Breast Bilateral Mammography Narrative 03/02/2024 4:49 PM ELECTROLESS PLATER Mammogram Technique: Bilateral Digital Breast Tomosynthesis, Bilateral C-view 2D Screening mammogram. ??Views obtained: ??bilateral craniocaudal and bilateral mediolateral oblique. ??Computer Aided Detection was performed. Mammogram Findings: The present examination has been compared to prior imaging studies performed at [facility] on 12/24/2020, 01/27/2022 and 01/29/2023. There are scattered areas of fibroglandular density. There is no suspicious abnormality in either breast. Impression: There is no mammographic evidence of malignancy. Annual screening mammography is recommended. OVERALL FINAL ASSESSMENT: BI-RADS CATEGORY 1: ??Negative. Procedure Note Rene Gamble MD - 03/02/2024 Mammogram Technique: Bilateral Digital Breast Tomosynthesis, Bilateral C-view 2D Screening mammogram. Views obtained: bilateral craniocaudal and bilateral mediolateral oblique. Computer Aided Detection was performed. Mammogram Findings: The present examination has been compared to prior imaging studies performed at [facility] on 12/24/2020, 01/27/2022 and 01/29/2023. There are scattered areas of fibroglandular density. There is no suspicious abnormality in either breast. Impression: There is no mammographic evidence of malignancy. Annual screening mammography is recommended. OVERALL FINAL ASSESSMENT: BI-RADS CATEGORY 1: Negative. us Self Screening Mammogram IMG MAMMO PROCEDURES Fi nal Result from Last 3 Months Insurance MEDICARE COMMERCIAL GENERIC MEDICARE [facility] GENERIC MEDICARE [place] [id number] [employer] W [employer] SUPPLEMENT Care Teams County Manager Relationship Specialty Start Date End Date Ariela Fowler MD PCP - General Family Medicine 05/14/23 Danis Mora MD Referring Physician Obstetrics and Gynecology 07/22/18
--- OUTSIDE RECORDS SUMMARY | 2024-04-14 08:09 | XMS_ITS | Encounter Summary ---
Author Organization [facility] Healthcare Address [address] [place] [address] Care Team Providers Care Asset Protection Agent Name Role Phone Danis Mora MD Unavailable [phone] Ariela Fowler MD Primary Care Provider + Encounter Details Date Type Department Care Team (Late st Contact Info) Description 09/18/[address] 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 Gender Identity Not on file Sexual Orientation Not on file documented as of this encounter Plan of Treatment Not on file documented as of this encounter Procedures Procedure Name Priority Date/Time Associated Diagnosis Comments SCAN - LABS 09/18/2023 documented in this encounter Results * SCAN - LABS (09/18/2023) us Provider Scanning Final Result documented in this encounter Visit Diagnoses Not on filedocumented in this encounter Care Teams Asset Protection Agent Relationship Specialty Start Date End Date Ariela Fowler MD PCP - General Family Medicine 05/14/23 Danis Mora MD Referring Physician Obstetrics and Gynecology 07/22/18 documented as of this encounter
--- OUTSIDE RECORDS SUMMARY | 2024-04-14 08:09 | XMS_ITS | Referral Summary ---
Author Organization [facility] Virtual Care Address [facility] [place] [address] Phone Care Team Providers Care Asphalt Spreader Operator Name Role Phone Danis Mora MD Unavailable [phone] Ariela Fowler MD Primary Care Provider + Encounters Date Type Department Care Team Description 02/29/2024 9:29 AM ENVIRONMENTAL DESIGNER - 02/29/2024 11:59 PM [facility] Hospital Encounter [facility] Advanced Medicine Breast Imaging [facility] Advanced Medicine ([facility]) [address] [place] [phone] Screening mammogram, encounter for Discharge Disposition: Discharge to home or self care from Last 3 Months Allergies Active Allergy Reactions Criticality Noted Date [...] 25 mg tabletIndications :Coronary artery disease involving [place] coronary artery of [place] heart without angina pectoris,Essentia l hypertension Take 1 tablet (25 mg total) by mouth daily 90 tablet 3 4 11/21/19 25 Active Active Problems Problem Noted Date Diagnosed Date Coronary artery disease invo lving [place] coronary artery of [place] heart without angina pectoris 11/06/2022 Palpitations 11/07/2020 Dizziness 11/07/2020 Equivocal stress test 11/07/2020 Hyperlipidemia LDL goal <100 11/07/2020 Essential hypertension 11/07/2020 Abnormal EKG 11/07/2020 Abnormal mammogram 08/15/2018 Social History Tobacco Use Types Packs/Day Years [...] on file Legal Sex Female 11:59 PM ENVIRONMENTAL DESIGNER Gender Identity Not on file Sexual Orientation Not on file Last Filed Vital Signs Vital Sign Reading [...] 11/21/2023 7:59 AM CDT Plan of Treatment Not on file Procedures Procedure Name Priority Date/Time Associated Diagnosis Comments SCREENING MAMMOGRAM BILATERAL W LETY Schedule Routine, Read Routine (OP Routine) 02/29/2024 9:41 AM ENVIRONMENTAL DESIGNER Screening mammogram, encounter for from Last 3 Months Results * Screening Mammogram Bilateral W Lety (02/29/2024 9:41 AM ENVIRONMENTAL DESIGNER) Anatomical Region Laterality Modality Breast Bilateral Mammography Narrative 03/02/2024 4:49 PM ENVIRONMENTAL DESIGNER Mammogram Technique: Bilateral Digital Breast Tomosynthesis, Bilateral C-view 2D Screening mammogram. ??Views obtained: ??bilateral craniocaudal and bilateral mediolateral oblique. ??Computer Aided Detection was performed. Mammogram Findings: The present examination has been compared to prior imaging studies performed at [facility] on 12/24/2020, 01/27/2022 and 01/29/2023. There are [...] compared to prior imaging studies performed at [facility] on 12/24/2020, 01/27/2022 and 01/29/2023. There are scattered areas of fibroglandular density. There is no suspicious abnormality in either breast. Impression: There is no mammographic evidence of malignancy. Annual screening mammography is recommended. OVERALL FINAL ASSESSMENT: BI-RADS CATEGORY 1: Negative. us Self Screening Mammogram IMG MAMMO PROCEDURES Fi nal Result from Last 3 Months Insurance MEDICARE COMMERCIAL GENERIC MEDICARE COMMERCIAL GENERIC MEDICARE [place] [id number] [facility] SUPPLEMENT Care Teams Asphalt Spreader Operator Relationship Specialty Start Date End Date Ariela Fowler MD PCP - General Family Medicine 05/14/23 Danis Mora MD Referring Physician Obstetrics and Gynecology 07/22/18
--- NOTE | 2024-05-07 11:36 | WPDSLEEPSTUD ---
Sleep Study Date of Study: 04/14/24 Ordering Provider: CONSTANTINO Diaz Interpreting Physician: Triny Kraft MD Sleep Study Type: Polysomnogram Height: 1.7 m Weight: 73.936 kg Body Mass Index: 25.5 Neck Circumference (inches): 14 [place]: 0 Reason for Sleep Study Coronary artery disease with PVCs, hypertension; her primary care doctor referred her for testing. Sleep History Priti Purcell is a 68-year-old woman who does not have specific sleep complaints. Her medical comorbidities include hypertension, heart disease, acid reflux, pre-diabetes and nasal allergies. She does not awaken from sleep feeling short of breath. She rarely awakens at night with heartburn, belching or coughing. She is not aware if she snores. She does not have trouble breathing when she has a cold. She does not wake up gasping for breath at night. She does not have breathing problems at night reported to her by others. She occasionally sweats excessively at night. She does not notice her heart pounding or beating irregularly at night. She does not fall asleep during the day nor does she fall asleep involuntarily. She does not fall asleep while driving. She does not have loss of muscle tone with strong emotion. She does not have daytime difficulties due to excessive sleepiness. She does not feel paralyzed on waking or falling asleep. She does not experience dreamlike scenes upon awakening or falling asleep. She does not feel afraid to go to sleep. She does not have nightmares. She does not have dream recall. She denies feeling sad, depressed or anxious. She occasionally notices parts of her body jerking when she awakens. She does not kick at night. She does not have crawling or aching feelings in her legs at night. She does not experience any kind of leg pain during the night. She denies having morning jaw pain. She occasionally grinds her teeth during sleep. She rarely is bothered by pain during the day. She is not awakened by pain during the night. She does not wake up feeling stiff in the morning. She does not wake up with sore achy muscles or pain in the neck and spine. She reports a 20 lb weight gain in the last year. She occasionally has heartburn at night. She never awakens feeling refreshed. Her normal bedtime is 8:30 p.m.. She does not know how long it takes her to fall asleep, she does not indicate whether not she awakens during the night and if she awakens, she does not give an indication of how long she stays awake. Her normal wake time is between 6:00 a.m. and 7:00 a.m.. On weekends, bedtime is later, 10:00 p.m. and her wake time is 7:00 a.m.. She spends 9 hours in bed overnight. She estimates getting between 7 and 8 hours of sleep. She takes naps in the afternoon or evening, not daily. She may feel refreshed after a 10-15 minute nap. Habits: Tobacco: none Caffeine: none Alcohol: none Recreational substances: none PMF Past Medical History Medical History (Updated 05/15/24 @ 21:32 by Triny Kraft MD) Allergic rhinitis, cause unspecified Mixed hyperlipidemia Orthostatic hypotension Muscle contraction headache syndrome Prehypertension Surgical History Surgical History History of dilation and curettage History of colonoscopy (~01/26/08) History of colonoscopy (~03/02/13) Family History Family History Other Family history of cardiovascular disease Family history of elevated blood lipids Social History Social History (Updated 04/09/24 @ 09:24 by Kesha Almanzar MA) Smoking status: Never smoker Second hand tobacco smoke exposure: No Alcohol intake: never Substance use: never Substance use type: does not use Do You Feel Safe in your Home?: Yes Lack of Transportation: No Lack of Food: Never True Current Housing: I Have Housing Concerned About Future Housing: No Difficulty Paying Gas/Electric Bills: No Difficulty Paying for Meds: No Currently Unemployed: No Education: High School Diploma/GED Difficulty w/ Childcare or Family Care: No Living arrangements: with family Occupation/Education: occupation Gender identity (if verbalized by the patient): Female Medications Home Medications ?Medication ?Instructions ?Recorded ?Confirmed ?Type aspirin 81 mg chewable tablet 81 mg PO DAILY #90 tabs 09/21/20 04/09/24 Rx calcium carbonate (Calcium 600) 600 mg PO BID 03/23/22 04/09/24 History cholecalciferol (vitamin D3) 125 125 mcg PO DAILY 03/23/22 04/09/24 History mcg (5,000 unit) capsule ascorbic acid (vitamin C) 1,000 mg 1 g PO DAILY 03/28/23 04/09/24 History capsule lactobacillus combination no.9 4 4,000 mmu cells PO DAILY 03/28/23 04/09/24 History billion cell capsule (Adult 50 Plus Probiotic) [id number]-Yv-nvzf-minerals 18 tablet PO 03/28/23 04/09/24 History mg-0.4 mg tablet losartan 25 mg tablet 25 mg PO DAILY #90 tabs 09/26/23 04/09/24 Rx metoprolol succinate 25 mg 25 mg PO DAILY #90 tabs 09/26/23 04/09/24 Rx tablet,extended release 24 hr atorvastatin 10 mg tablet See Rx Instructions .Route 01/20/24 04/09/24 Rx .COMPLEX #90 ea vitamin K2 180 mcg capsule 180 mcg PO DAILY 04/09/24 04/09/24 History Sleep Procedure A full night polysomnogram using the [employer] multi-channel system recorded the standard physiologic parameters including EEG, EOG, submentalis EMG, anterior tibialis EMG, EKG, body position, nasal and oral airflow using nasal pressure sensor and thermistor. Respiratory parameters of chest and abdominal movements were recorded with Respiratory Inductance Plethysmography belts. Oxygen saturation was recorded by pulse oximetry. Video monitoring was also performed. Sleep stages, periodic limb movements, and EEG arousals were scored in 30 second epochs according to the criteria of the AASM Scoring Manual. The Apnea-Hypopnea Index was calculated using CMS guidelines for definition of hypopnea while scoring respiratory events. She told the tech that she was displeased about being referred for testing, had a difficult time falling asleep and complained about the furnace kicking on and off making too much noise. She did not meet criteria for CPAP therapy until 4:00 a.m. so this was conducted as a full night basic nocturnal polysomnogram. Sleep Architecture The total recording time was 435.5 minutes. The total sleep time was 214.0 minutes. Sleep latency was 69.9 minutes. REM latency was 251.5 minutes. Sleep efficiency was 49.1%. The patient had 25 awakenings for an awakening index of 7.0. Wake after sleep onset time was 151.5 minutes. The patient spent 27.5 minutes, 12.9% of total sleep time in Stage N1. The patient spent 103.0 minutes, 48.1% in Stage N2. The patient spent 55.0 minutes, 25.7% in Stage N3. The patient spent 28.5 minutes, 13.3% in Stage REM sleep. Respiratory Analysis The patient had 19 hypopneas, 12 obstructive apneas, no mixed apneas, and no central apneas for an overall Apnea Hypopnea Index of 8.7. The REM Apnea Hypopnea Index was 44.2. The NREM Apnea Hypopnea Index was 4.9. The patient had a Central Apnea Hypopnea Index of 0. There were no Respiratory Effort Related Arousals. The Respiratory Disturbance Index is 12.9 events per hour. There was no evidence of Jhonny-Duran Respirations. Arousals There were 75 total arousals for an arousal index of 21.0. There were 21 spontaneous arousals for an index of 5.9. There were 40 arousals due to respiratory events for an index of 11.2. There were 11 arousals due to periodic limb movements for an index of 3.1. There were 3 arousals due to isolated limb movements for an index of 0.8. Periodic Limb Movements The patient had 18 isolated limb movements with an index of 5.0. The patient had 51 periodic limb movements with an index of 14.3. Patient had a total of 69 limb movements with a total limb movement index of 19.3. Oximetry Data The patient had an average oxygen saturation of 96.0% in sleep with a minimum oxygen saturation of 90% and a maximum oxygen saturation of 99%. The patient had 24 oxygen desaturations that were 4% or greater resulting in an Oxygen Desaturation Index of 6.7. The patient spent no time below 88% saturation. Snoring Profile Snoring was mild. Cardiac Profile The EKG showed normal sinus rhythm, average pulse rate of 54.3 bpm with a minimum pulse of rate of 46 bpm and a maximum pulse rate of 81 bpm. No arrhythmias noted. EEG Profile Unremarkable, no evidence of seizures. Assessment and Plan Assessment and Plan (1) Obstructive sleep apnea: Code(s): G47.33 - Obstructive sleep apnea (adult) (pediatric) Status: Acute Assessment and Plan: This basic nocturnal polysomnogram 04/14/2024 shows mild obstructive sleep apnea, AHI is 8.7, lowest saturation 90% and mild snoring. Events were more common in the nonsupine position, nonsupine apnea-hypopnea index 11.1, supine index 1.0. She had a prolonged sleep latency, approximately 70 minutes. She had prolonged REM latency 251.5 minutes. Sleep efficiency was low 49%. She spent over half the night awake. The limited amount of sleep may have underestimated the severity of sleep disordered breathing. She has mild obstructive sleep apnea and a medical comorbidity of hypertension. Together, she is a candidate for treatment however the patient does not perceive that she has any sleep problem. I would not recommend treatment when the patient does not want treatment. If she decides that she might feel better with treatment and her blood pressure may be easier to control, I would recommend consideration of auto PAP. She is also a candidate for mandibular advancement device, an oral device fitted by a sleep dentist. In order to pursue this treatment, she would need a sleep medicine referral. Data The data obtained during this sleep study is adequate for interpretation. Certification This sleep study has been reviewed by a board certified sleep medicine physician.
[2024-05-15 21:31] VITALS: BMI 25.5
== END 2024-04-15 06:51 | disposition home or self-care (01) ==
LOC: ANHCSM 08:00
PROVIDERS: PCP Family Medicine; Visit Provider Nurse Practitioner Family
DX: G47.33 Obstructive sleep apnea (adult) (pediatric) (principal); R00.2 Palpitations
CPT/HCPCS: 95810

== ENCOUNTER 2024-09-02 07:46 | Outpatient (CLI) | payer MEDICARE, OTHER, SELFPAY ==
--- NOTE | ~2024-09-02 | DEXA_ITS ---
Bone Density Report Name: JOHNSON TSAI Age: 68 Sex: Female Ethnicity: White Date of : 1955 Indication: postmenopausal; screening for osteoporosis; height loss; Referring Provider: FERNANDO REDDY Study: Bone densitometry was performed. Exam Date: September 02, 2024 Accession number: [id number] Bone Density: Region BMD T-score Z-score Classification AP Spine(L1-L4) 0.966 -0.7 1.4 Normal Femoral Neck (Left) 0.637 -1.9 -0.1 Osteopenia Total Hip (Left) 0.756 -1.5 0.0 Osteopenia Femoral Neck (Right) 0.622 -2.0 -0.2 Osteopenia Total Hip (Right) 0.755 -1.5 0.0 Osteopenia Total Hip Mean 0.755 -1.5 0.0 Osteopenia World Health Organization criteria for BMD impression classify patients as: Normal (T-score at or above -1.0), Osteopenia (T-score between -1.0 and -2.5), or Osteoporosis (T-score at or below -2.5). 10-year Fracture Risk(1): Major Osteoporotic Fracture 12% Hip Fracture 2.5% Reported Risk Factors: [place] (), Neck BMD=0.622, BMI=26.5 (1) FRAX(R) Version 3.08. Fracture probability calculated for an untreated patient. Fracture probability may be lower if the patient has received treatment. Clinical Information Provided by Patient: Has used the following medications: Vitamin D, Calcium Patient maximum height was 68 Menopause Age: 38 Does not regularly consume dairy products Onset of menses at age 13 Number of children 0 Missed period for more than 6 months in a row Impression: The patient has low bone mass, based on the Right Femoral Neck T-score. The patient has an estimated ten-year risk of hip fracture of 2.5% and an estimated ten-year risk of major fracture of 12%, based on the WHO FRAX algorithm. Discussion: BONE DENSITY IS LOW AT ONE OR MORE SKELETAL SITES. This patient's lowest T-score is low at one or more skeletal sites. It meets the World Health Organization's (WHO) criteria for ?low bone mass? (T-score between -1.0 and -2.5). The patient's 10-year risk of fracture as calculated by FRAX is less than the threshold where pharmacological therapy is recommended by the National Osteoporosis Foundation (NOF). However, all treatment decisions require clinical judgment and consideration of individual patient factors, including patient preferences, comorbidities, previous drug use, risk factors not captured in the FRAX model (e.g., frailty, falls, vitamin D deficiency, increased bone turnover, interval significant decline in bone density) and possible under or overestimation of fracture risk by FRAX. The patient should follow a healthful lifestyle (good nutrition with adequate calcium and vitamin D, and appropriate weight-bearing exercise). Follow-Up: Consider repeating this study in 2 to 3 years to reassess this patient's status, or sooner if there is some new clinical indication. Reported by: ISAIAH on 09/02/2024 8:23:00 AM. Reviewed, dictated and finalized at location A.
--- OUTSIDE RECORDS SUMMARY | 2024-09-02 07:51 | XMS_ITS | Data Portability ---
Author Organization [facility] Address [address] [place] [address] Assessment No assessment recorded. Plan of Treatment Reminders Order Date Submit Date Provider Last Modified By Organization Details Last Modified Time Details Appointments None recorded. Lab urinalysi s, dipstick 2018 019 dante In-Office Order, Internal Use Only DO Not Attach Compendium DO Not Attach Compendium, Do Not Delete/merge, [id number] 9 17:28:12 culture, urine 2016 017 [facility], [address], [address], [place], [address], 7 10:35:32 urinalysi s, dipstick 2016 017 dante In-Office Order, Internal Use Only DO Not Attach Compendium DO Not Attach Compendium, Do Not Delete/merge, [id number] 7 17:59:59 pap, IG + HPV, cervical 2016 017 [facility], [address], [address], [place], [address], 7 06:05:37 Referral breast surgery referral 2018 019 [facility], [address] [facility], [facility], [place], [address], 9 13:44:21 Procedures None recorded. Surgeries None recorded. Imaging DEXA 07/22/ 2019 05/04/2 020 [facility], [address], [facility] [place], [address], 0 12:24:47 Medication Orders raloxifen e 60 mg tablet 2018 019 INTERFACE [facility], [address] [place] [address], [address], 9 17:45:53 Premarin 0.625 mg/gram vaginal cream 2018 019 [facility], [address] [place] [address], [address], 9 17:05:53 ibandrona te 150 mg tablet [address] [facility], [address] [place] [address], [address], 9 17:55:53 Activella 0.5 mg-0.1 mg tablet 2016 017 [email or web address] [facility], [address] [place] [address], [address], 9 16:52:59 Premarin 0.625 mg/gram vaginal cream [address] [facility], [address] [place] [address], [address], 6 18:41:25 Patient TargetsNo targets recorded. Patient Instructions Encounter Date Encounter Id Patient Instructions Last Modified By Organization Details Last Modified Time 06/29/2015 [id number] atrophic vaginitis: care instructions dante Not available 06/29/2015 18:41:15 osteoporosis: care instructions dante Not available 06/29/2015 18:41:15 07/21/2018 [id number] Core Needle Breast Biopsy: About This Test dante Not available 07/21/2018 17:28:12 10/06/2018 [id number] osteoporosis: care instructions dante Not available 10/06/2018 17:01:18 Reason for Referral Breast Surgery Referral for Mammography abnormal Referring Physician: Melania Mora, PA[employer]LL OFFICER, Encounter Date: 07/21/2018 Results Created Date Observation Date Name Description Value Unit Range Abnormal Flag Note LastModifiedBy Organization Detail LastModifiedTime 07/22/19 19 07/21/2018 urina lysis , dipst ick Leukocytes Small Not Available In-Offi ce Order Internal Use Only DO Not Attach Compendium DO Not Attach Compendium, Do Not Delete/merge, [id number] 07/21/2018 17:06:10 07/22/1907/21/2018 urina lysis , dipst ick Nitrite negati ve Not Available In-Office Order Internal Use Only DO Not Attach Compendium DO Not Attach Compendium, Do Not Delete/merge, [id number] 07/21/2018 17:06:10 07/22/1907/21/2018 urina lysis , dipst ick Urobilinogen .2 Not Available In-Of fice Order Internal Use Only DO Not Attach Compendium DO Not Attach Compendium, Do Not Delete/merge, [id number] 07/21/2018 17:06:10 07/22/1907/21/2018 urina lysis , dipst ick Protein Negati ve Not Available In-Office Order Internal Use Only DO Not Attach Compendium DO Not Attach Compendium, Do Not Delete/merge, [id number] 07/21/2018 17:06:10 07/22/1907/21/2018 urina lysis , dipst ick pH 5.0 Not Available In-Office Order Internal Use Only DO Not Attach Compendium DO Not Attach Compendium, Do Not Delete/merge, [id number] 07/21/2018 17:06:10 07/22/1907/21/2018 urina lysis , dipst ick Blood Negati ve Not Available In-Office Order Internal Use Only DO Not Attach Compendium DO Not Attach Compendium, Do Not Delete/merge, [id number] 07/21/2018 17:06:10 07/22/1907/21/2018 urina lysis , dipst ick Specific [place] 1.030 Not Available In-Off ice Order Internal Use Only DO Not Attach Compendium DO Not Attach Compendium, Do Not Delete/merge, [id number] 07/21/2018 17:06:10 07/22/19 19 07/21/2018 urina lysis , dipst ick Ketone Trace Not Available In-Office Order Internal Use Only DO Not Attach Compendium DO Not Attach Compendium, Do Not Delete/merge, [id number] 07/21/2018 17:06:10 07/22/19 19 07/21/2018 urina lysis , dipst ick Bilirubin Negati ve Not Available In-Office Order Internal Use Only DO Not Attach Compendium DO Not Attach Compendium, Do Not Delete/merge, [id number] 07/21/2018 17:06:10 07/22/19 19 07/21/2018 urina lysis , dipst ick Glucose Negati ve Not Available In-Office Order Internal Use Only DO Not Attach Compendium DO Not Attach Compendium, Do Not Delete/merge, [id number] 07/21/2018 17:06:10 06/28/19 17 06/27/2016 urina lysis , dipst ick Leukocytes Small Not Available In-Offi ce Order Internal Use Only DO Not Attach Compendium DO Not Attach Compendium, Do Not Delete/merge, [id number] 06/27/2016 17:20:39 06/28/19 17 06/27/2016 urina lysis , dipst ick Nitrite negati ve Not Available In-Office Order Internal Use Only DO Not Attach Compendium DO Not Attach Compendium, Do Not Delete/merge, [id number] 06/27/2016 17:20:39 06/28/19 17 06/27/2016 urina lysis , dipst ick Urobilinogen .2 Not Available In-Of fice Order Internal Use Only DO Not Attach Compendium DO Not Attach Compendium, Do Not Delete/merge, [id number] 06/27/2016 17:20:39 06/28/19 17 06/27/2016 urina lysis , dipst ick Protein Negati ve Not Available In-Office Order Internal Use Only DO Not Attach Compendium DO Not Attach Compendium, Do Not Delete/merge, [id number] 06/27/2016 17:20:39 06/28/19 17 06/27/2016 urina lysis , dipst ick pH 6.0 Not Available In-Office Order Internal Use Only DO Not Attach Compendium DO Not Attach Compendium, Do Not Delete/merge, [id number] 06/27/2016 17:20:39 06/28/19 17 06/27/2016 urina lysis , dipst ick Blood Negati ve Not Available In-Office Order Internal Use Only DO Not Attach Compendium DO Not Attach Compendium, Do Not Delete/merge, 06/27/2016 17:20:39 06/28/19 17 06/27/2016 urina lysis , dipst ick Specific [place] 1.030 Not Available In-Off ice Order Internal [...] AND KUMAR WELDON . Not Available [facility] ([facility]) [address] [facility], [place], [address], 07/04/2016 06:05:37 06/28/19 17 07/02/2016 pap, IG + HPV, cervi arthur specimen adequacy: COMMEN T SATIS FACTO RY FOR EVALU ATION . NO ENDOC ERVIC AL COMPO NENT IS IDENT IFIED . Not Available [facility] ([facility]) [address] [facility], [place], [address], 07/04/2016 06:05:37 06/28/1907/02/2016 pap, IG + HPV, cervi arthur clinician provided ICD10: CURLY Martines Z01.4 19 N39.0 Not Available [facility] ([facility]) [address] [place], [address], 07/04/2016 06:05:37 06/28/1907/02/2016 pap, IG + HPV, cervi arthur performed by: CURLY SHERWOOD , CYTOJj Martines (ASCP ) Not Available [facility] ([facility]) [address] [place], [address], 07/04/2016 06:05:37 06/28/1907/02/2016 pap, IG + HPV, cervi arthur . . Not Available [facility] ([facility]) [address] [place], [address], 07/04/2016 06:05:37 06/28/1907/02/2016 pap, IG + HPV, [...] TS DO OCCUR . Not Available [facility] ([facility]) [address] [place], [address], 07/04/2016 06:05:37 06/28/1907/02/2016 pap, IG + HPV, cervi arthur test methodology: CURLY Martines THIS LIQUI D BASED THINP REP(R ) PAP TEST WAS SCREE EDGAR WITH THE USE OF AN IMAGE GUIDE Niecy Marquez. Not Available [facility] ([facility]) [address] [place], [address], 07/04/2016 06:05:37 06/28/19 17 07/03/2016 pap, IG + HPV, cervi arthur HPV aptima NEGATI VE negati ve THIS TEST DETEC TS FOURT EEN HIGH- RISK HPV TYPES (16/1 8/31/ 33/35 /39/4 5/ 51/52 /56/5 8/59/ 66/68 ) WITHO UT DIFFE RENTI ATION . Not Available [facility] ([facility]) [address] [facility], [place], [address], 07/04/2016 06:05:37 06/29/19 17 07/01/2016 cultu re, urine urine culture, routine FINAL REPORT abnormal Not Available [facility] ([facility]) [address] [facility], [place], [address], 07/01/2016 10:35:32 06/29/19 17 07/01/2016 cultu re, [...] IMIPE NEM MEROP ENEM Not Available [facility] ([facility]) [address] [facility], [place], [address], 07/01/2016 10:35:32 06/29/19 17 07/01/2016 cultu re, [...] S VANCO MYCIN S Not Available [facility] ([facility]) [address] [facility], [place], [address], 07/01/2016 10:35:32 06/02/19 16 06/02/2015 mamsb w PT NAME: QUINGarrett Connolly : 1955 PT SEX/AG E: F/59 PT ACCT NUMBER : [id number] PT MR#: [id number] ROOM/B ED: PT STATUS : REG CLI DATE OF EXAMIN ATION: ORDERI PHYSIC BRANDON: MELANIA DE LA CRUZ MAN M.Quintin ATTEND [facility] PHYSIC BRANDON: MELANIA DE LA CRUZ MAN , M.D. DICTAT [facility] PHYSIC BRANDON: Jj STAFFORD M.D. 012 [...] ed, dictat ed and finali zed at [facility]. __ Electr onical ly signed by: EDUARDO STAFFORD Date: Time: 13:13 EDUARDO STAFFORD M.D.__ ___ Evelyn montalvo Madonna g, [facility] [address] [facility] [address] [place] [address] [facility] (Imaging) [address] [place] [address] [address], [place], [address], 06/29/2015 17:31:53 06/03/19 16 06/03/2015 briani regina/yuval martines No observ ation record ed. sugar Not Available 06/28 17:31:53 06/08/19 17 06/06/2016 mamsb w PT NAME: Garrett TSAI : 1955 PT SEX/AG E: F/ PT ACCT NUMBER : [id number] PT MR#: [id number] ROOM/B ED: PT STATUS : REG CLI DATE OF EXAMIN ATION: ORDERI PHYSIC BRANDON: MELANIA DE LA CRUZ MAN MEsdras ATTEND ING PHYSIC BRANDON: MELANIA DE LA CRUZ MAN , MEsdras DICTAT [facility] PHYSIC BRANDON: Jj GODOY M.D. 024 [id number] 7.001M IX 16:40: 00 61.020 8MVM[facility] ([facility]) : DIGITA L RUDDY SCREEN - BRIANNA [...] A. __ Electr onical ly signed by: ADRIAN GODOY Date: Time: 22:24 ADRIAN GODOY M.D.__ ___ [facility], [facility] [address] [place] [address] [facility] (Imaging) [address], [place], [address], 10/06/2018 17:30:03 06/08/19 17 06/06/2016 MAMMO lucero, bilat eral No observ ation record ed. [facility] [address], [place], [address], 10/06/2018 17:30:03 06/19/19 18 06/17/2017 MAMMO lucero, bilat eral No observ ation record ed. [email or web address] [address], [place], [address], 06/25/2017 09:21:41 06/28/1906/26/2018 MAMMO lucero, bilat eral No observ ation record ed. [facility] [address], [place], [address], 07/03/2018 10:12:21 06/28/1906/26/2018 imagi ng/di agnos tic resul t No observ ation record ed. [facility] [address], [place], [address], 10/06/2018 17:30:03 07/16/19 19 07/15/2018 US, breas t, unila teral No observ ation record ed. [address] [facility] [address], [place], [address], 07/16/2018 11:50:28 07/16/19 19 07/15/2018 US, breas t, unila teral No observ ation record ed. [address] [facility] [address], [place], [address], 07/16/2018 11:57:46 07/16/19 19 07/15/2018 MAMMO , diagn ostic , digit al, unila teral No observ ation record ed. [address] [facility] [address], [place], [address], 07/16/2018 11:50:28 09/16/19 19 07/15/2018 MAMMO , diagn ostic , digit al, unila teral No observ ation record ed. [facility] [address], [place], [address], 10/06/2018 17:30:03 Result Notes None recorded. Problems Name Problem SNOMED Code Status Onset Date Resolution Date Notes Provider Name and Address Organization Details Recorded Time Mammography finding 423292237 Completed 201806/28/2018 Melania krishna, [place] - [place] 9 10:08:48 Menopausal syndrome 065707649 Active Melania krishna, [place] - [facility] 6 18:56:40 Osteoporosi s 26157841 Active Melania kr[place], [place] [facility] 6 18:56:40 Atrophic vaginitis 03508705 Active Melania krishna [facility] 6 18:41:23 Problem Notes None recorded. Procedures Surgical History Date Name Laterality Status Provider Name and Address Organization Details Recorded Time 9 Most Recent Mammogram completed Kaylie Valiente MA [facility] 10/06/2018 16:51:18 7 Date of Last Pap Smear completed Kaylie Valiente MA [facility] 10/06/2018 16:51:34 Endometrial Ablation completed Thu Washington MA [facility] 06/29/2015 17:14:25 Orthopedic Surgery completed Thu Washington MA [facility] 06/29/2015 17:14:25 Other completed Thu Washington MA [facility] 06/29/2015 17:14:25 Imaging Results None recorded. Procedure Notes None recorded. Medical Equipment None Reported. Allergies Allergen ID Allergen Name Allergen Category Reaction Reaction Severity Criticality Documentation Date Start Date Code Code System Note Provider Name and Address Organization Details Recorded Time 82170 Keflex medicatio n hives severe Not available 06/29/2015 7 RxNorm LEANA Moser, [facility] 6 17:00:03 78813 Product containin g penicilli n (product) medicatio n Not available Not available Not available 06/29/2015 34847 8001 SNOMED LEANA Moser, [facility] 6 17:00:03 Medications Name Sig Start Date Stop Date [...] Not Available Not Available Not Available Fluvirin 45 mcg (15 mcg x 3)/0.5 mL [...] Available Not Available Vitals Date Recorded Body height Provider Name an d Address Organization Details Last Updated DateTime 06/27/2016 165.1 cm Thu Washington MA [facility] 06/27/2016 16:01:45 Date Recorded Body weight Body mass index (BMI) Provider Name and Address Organization Details Last Updated DateTime 06/27/2016 81041.86 g 25 kg/m2 Maliha Treviño MA [facility] 06/27/2016 16:10:06 Date Recorded Body height Body mass index (BMI) Body weight Systolic blood pressure Diastolic blood pressure Provider Name and Address Organization Details Last Updated DateTime 06/29/2015 165.1 cm 26.6 kg/m2 19678.77 92 g 130 mm[Hg] 70 mm[Hg] Thu Washington MA [facility] 6 17:15:38 Date Recorded Body weight Systolic blood pressure Diastolic blood pressure Provider Name and Address Organization Details Last Updated DateTime 07/21/2018 40814.26 g 130 mm[Hg] 90 mm[Hg] Pietro Connell MA [facility] 07/21/2018 17:01:16 Date Recorded Body weight Body mass index (BMI) Body height Systolic blood pressure Diastolic blood pressure Provider Name and Address Organization Details Last Updated DateTime 10/06/2018 31486.45 g 23 kg/m2 172.72 cm 118 mm[Hg] 82 mm[Hg] Kaylie Valiente MA [facility] 9 16:57:01 Social History Question Answer Notes LastModified by Organizat ion Details LastModified Time Tobacco Smoking Status Never Smoker Thu [place], LEANA [facility], [place] - SI 06/29/2015 17:03:11 Do You Have An Advance Directive? No Information not available 06/29/2015 What Is Your Level Of Caffeine Consumption? Occasional Information not available 06/29/2015 How Much Tobacco Do You Chew? None Information not available 06/29/2015 What Type Of Diet Are You Following? REGULAR Information not available 06/29/2015 Which Illicit Or Recreational Drugs Have You Used? None Information not available 06/29/2015 Education 12 Information no t available 06/29/2015 Live Alone Or With Others? With Others [...] ion Details LastModified Time What is your level of alcohol consumption? None Information not available 06/29/2015 Are you currently employed? Yes Information not available 06/29/2015 What is your occupation? [employer] [email or web address] Information not available 06/27/2016 What is your exercise level? Occasional Information not available 06/29/2015 Mental Status None recorded. Family History Relationship Description Onset Age of this Age Resolved Age Notes LastModified by Organization Details LastModified Time Mother Hypercholest chan howell Not available 06/28 17:31:27 Brother Hyperchraya howell Not available 06/28 17:31:27 Medical History Condition Response Other N High Blood Pressure N Breast Cancer N Thyroid Problems N Kidney or Bladder Problems N GI Problems N Depression N Blood Clots N Lung Disease N Acne N Breast Problem N Eating Disorder N Anemia N Anesthesia Complications N Headaches/Migraines N Anxiety Disorder N Diabetes N Ovarian Cancer N Muscle, Joint, or Bone Problems N Blood Transfusions N Seizures/Epilepsy N Polyps N Infertility N Acid Reflux (GERD) N Cancer N [...] SNOMED-CT Code Diagnosis ICD10 Code Diagnosis Note [id number] Melania Mora MD [facility] (PAYROLL OFFICER) [address] [place] [address] 06/29/2015 15:51:34 06/29/2015 18:41:54 Menopausal syndrome 419870908 N95.9 Osteoporosis 83634012 M8 1.0 Atrophic vaginitis 65160 000 N95.2 [id number] MD Yovani Diaz (PAYROLL OFFICER) [address] [place] [address] 06/27/2016 15:30:07 06/27/2016 16:54:49 Gynecologic examination 55626813 Z01.419 Acute urin julio césar tract infection 549380577 N39.0 [id number] MD Yovani Diaz (PAYROLL OFFICER) [address] [place] [address] 07/21/2018 16:42:47 07/22/2018 16:30:29 Mammography abnormal 257131364 R92.8 [id number] MD Yovani Diaz (PAYROLL OFFICER) [address] [place] [address] 10/06/2018 16:05:50 10/09/2018 12:38:59 Atrophic vaginitis 95755548 N95.2 Menopausal syndrome 1237 47809 N95.9 Osteoporosis 96457537 M8 1.0 Health Concerns Section Related Observation LastModified by Organization Detai ls LastModified Time None Recorded Concern Status LastModified by Organization Details LastModified Time None Recorded Advance Directives Directive N: Payers Insurance Date Sequence Insurance Name Policy Number Policy Murphy Covered Member ID Murphy Member ID Guarantor Name 08/01/2020 1 [employer] [id number] [facility] [id number] [facility] 08/01/2020 3 [facility] 655 (PPO) [id number] Priti [facility] [id number] [facility] 08/01/2020 2 [employer] [facility] [id number] Priti Connolly [facility] [id number] [facility] 08/01/2020 1 [place] [id number] Priti [facility] [id number] Priti [facility] Notes Date Note Type Note Provider Name [...] depression; No anxiety; No PMDD YASEMIN Ambriz - [facility] 06/29/2015 18:41:32 06/27/2016 text/html 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 Post-MenopausalRep orted bypatient.Menopaus al Symptoms:no menopausal symptoms; normal vaginal lubrication Vaginal Bleeding:history of menopause having occurred; no history of post menopausal bleeding Urinary Symptoms:no hematuria; no incontinence; no nocturia; no urinary frequency Vulva:no genital lesion; no vulvar atrophy Vagina:normal vaginal discharge; no vaginal atrophy Breast:no breast lump; no nipple discharge; no breast pain Sexual Complaints:no sexual complaints Psychological Symptoms:no depression; 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 She recently was seen at [facility] [place] for breast imaging follow-up and was reassured there were no concerning findings and no biopsy was needed.She requests refills on her medications. YASEMIN Ambriz SIShannon 10/09/2018 12:26:57 OBGyn Episode No OBEpisode recorded.
--- OUTSIDE RECORDS SUMMARY | 2024-09-02 07:52 | XMS_ITS | Encounter Summary ---
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
--- OUTSIDE RECORDS SUMMARY | 2024-09-02 07:52 | XMS_ITS | Clinical Summary ---
Author Organization [facility] Virtual Care Address [address] [place] [phone] Phone Care Team Providers Care Motor Vehicle License Clerk Name Role Phone Danis Mora MD Unavailable [phone] Ariela Fowler MD Primary Care Provider + [...] 25 mg tabletIndications :Coronary artery disease involving [place] coronary artery of [place] heart without angina pectoris,Essentia l hypertension Take 1 tablet (25 mg total) by mouth daily 90 tablet 3 4 11/21/19 25 Active Active Problems Problem Noted Date Diagnosed Date MONA (obstructive sleep apnea) 06/18/2024 Coronary artery disease invo lving [place] coronary artery of [place] heart without angina pectoris 11/06/2022 Palpitations 11/07/2020 Dizziness 11/07/2020 Equivocal stress test 11/07/2020 Hyperlipidemia LDL goal <100 11/07/2020 Essential hypertension 11/07/2020 Abnormal EKG 11/07/2020 Abnormal mammogram 08/15/2018 Encounters Date Type Department Care Team Description 06/18/2024 9:15 AM CDT Office Visit [facility] Medical [facility] Cardiology [address] [place] [address] Ridge Pate MD Coronary artery disease involving [place] coronary artery of [place] heart without angina pectoris (Primary Dx); Essential hypertension; Hyperlipidemia LDL goal <100; Palpitations; MONA (obstructive sleep apnea) 06/18/2024 Orders Only [facility] Cardiology [address] [place] [address] Provider, MD Osiel from Last 3 Months Surgical History Surgery [...] on file 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 Gender Identity Not on file Sexual Orientation Not on file Obstetrics History Last Filed Vital Signs Vital Sign Reading Time Taken Comments Blood Pressure 130/80 06/18/2024 9:18 AM CDT Pulse 83 06/18/2024 9:18 AM CDT Temperature - - Respiratory Rate - - Oxygen Saturation 99% 06/18/2024 9:18 AM CDT Inhaled Oxygen Concentration - - Weight 74.4 kg (164 lb) 06/18/2024 9:18 AM CDT Height 172.7 cm (5' 8) 06/18/2024 9:18 AM CDT Body Mass Index 24.94 06/18/2024 9:18 AM CDT Plan of Treatment Health Maintenance Due Date Last Done Comments Colon Cancer Screening-Colonoscopy 1955 Depression Screening 1955 Fall Risk Assessment 1955 Hepatitis C Screening 1955 DTaP/Tdap/Td Vaccine (1 - Tdap) 1964 Hepatitis B Screening 09/20/1971 Pneumococcal vaccine 65+ (1 of 1 - PCV) 09/20/2003 Zoster Vaccine (1 of 2) 09/20/2003 Well Visit 65+ 2018 Osteoporosis Screening-Bone Density Scan 07/19/2021 07/20/2019 Influenza Vaccine (Season Ended) 2024 11/19/2018, 12/09/2017, 12/03/2017, Additional history exists Breast Cancer Screening-Mammogram 02/28/2025 02/29/2024, 01/29/2023, 01/27/2022, Additional history exists Procedures Procedure Name Priority Date/Time Associated Diagnosis Comments SCREENING MAMMOGRAM BILATERAL W LETY Schedule Routine, Read Routine (OP Routine) 02/29/2024 9:41 AM PREPRESS SUPERVISOR Screening mammogram, encounter for from Last 3 Months or Most Recently Relevant to Health Maintenance Results * Screening Mammogram Bilateral W Lety (02/29/2024 9:41 AM PREPRESS SUPERVISOR) Anatomical Region Laterality Modality Breast Bilateral Mammography Narrative 03/02/2024 4:49 PM PREPRESS SUPERVISOR Mammogram Technique: Bilateral Digital Breast Tomosynthesis, Bilateral C-view 2D Screening mammogram. Views obtained: bilateral craniocaudal and bilateral mediolateral oblique. Computer Aided Detection was performed. Mammogram Findings: The present examination has been compared to prior imaging studies performed at [facility] on 12/24/2020, 01/27/2022 and 01/29/2023. There are scattered areas of fibroglandular density. There is no suspicious abnormality in either breast. Impression: There is no mammographic evidence of malignancy. Annual screening mammography is recommended. OVERALL FINAL ASSESSMENT: BI-RADS CATEGORY 1: Negative. Procedure Note Rene Gamble MD - 03/02/2024 Mammogram Technique: Bilateral Digital Breast Tomosynthesis, Bilateral C-view 2D Screening mammogram. Views obtained: bilateral craniocaudal and bilateral mediolateral oblique. Computer Aided Detection was performed. Mammogram Findings: The present examination has been compared to prior imaging studies performed at [facility] on 12/24/2020, 01/27/2022 and 01/29/2023. There are scattered areas of fibroglandular density. There is no suspicious abnormality in either breast. Impression: There is no mammographic evidence of malignancy. Annual screening mammography is recommended. OVERALL FINAL ASSESSMENT: BI-RADS CATEGORY 1: Negative. us Self Screening Mammogram IMG MAMMO PROCEDURES Fi nal Result from Last 3 Months or Most Recently Relevant to Health Maintenance Insurance MEDICARE COMMERCIAL GENERIC MEDICARE [facility] GENERIC MEDICARE [place] [id number] H & W MCR SUPPLEMENT Care Teams Motor Vehicle License Clerk Relationship Specialty Start Date End Date Ariela Fowler MD PCP - General Family Medicine 05/14/23 Danis Mora MD Referring Physician Obstetrics and Gynecology 07/22/18
--- OUTSIDE RECORDS SUMMARY | 2024-09-02 07:52 | XMS_ITS | Clinical Summary ---
Author Organization [facility] Address [facility] [place] [address] Care Team Providers Care Caregivers Non Medical Name Role Phone Unavailable Primary Care Provider Unavailabl e Social History Tobacco Use Types Packs/Day Years Used Date Smoking Tobacco: Never Assessed Comments Unknown Sex and Gender Information Value Date Recorded Sex Assigned at Not on file Legal Sex Female 8:49 AM CDT Gender Identity Not on file Sexual Orientation Not on file Plan of Treatment Upcoming Encounters Date Type Department Care Team (Latest Contact Info) Description 09/14/2024 1:12 PM CDT Hospital Encounter [facility] [id number] [place] [id number] Santos Woodward MD [address] [place] [address] 09/14/2024 1:12 PM CDT - 09/14/2024 1:50 PM CDT Surgery [facility] [address] [place] [address] Santos Woodward MD [address] [place] [address] CATARACT REMOVAL WITH IOL IMPLANT Scheduled Procedures Name Priority Associated Diagnoses Date/Ti me CATARACT REMOVAL WITH IOL IMPLANT H25.11 09/14/2024 1:12 PM CDT Health Maintenance Due Date Last Done Comments Colorectal Cancer Screening Colonoscopy (10 Years) 1955 Hepatitis C 09/20/1971 DTaP, Tdap and Td Vaccines ( 1 - Tdap) 1972 Mammogram Screening 1993 Zoster Vaccines (1 of 2) 09/20/2003 Dexa Scan (General) 2018 COVID-19 Vaccine (3 - 2023-2 5 season) 2023 06/10/2020, 05/13/2020 RSV Immunization or 60+ Years (1 - 1-dose 75+ series) 2028 Pneumococcal Vaccine: 50+ Years Completed 02/21/2021, 03/03/2020 Meningococcal B Vaccine Aged Out No l onger eligible based on patient's age to complete this topic Meningococcal Vaccine Aged Out No rain wanda eligible based on patient's age to complete this topic RSV Immunizations Under 20 Months Aged Out No longer eligible b ased on patient's age to complete this topic Goals Goal Patient Goal Type Associated Problems Recent Progress Patient-Stated? Author Autogenerat ed Goal Care Plan Autogenerated Problem No Swathi Banda RN Additional Health Concerns Active Problems Noted Date Diagnosed Date Autogenerated Problem 08/24/2024 Insurance MEDICARE
--- OUTSIDE RECORDS SUMMARY | 2024-09-02 07:52 | XMS_ITS | Referral Summary ---
Author Organization [facility] Virtual Care Address [address] [place] [phone] Phone Care Team Providers Care Road Advisor Name Role Phone Danis Mora MD Unavailable [phone] Ariela Fowler MD Primary Care Provider + Encounters Date Type Department Care Team Description 06/18/[address] [facility] Medical [facility] Cardiology [address] [place] [phone] ProviderOsiel MD 06/18/2024 9:15 AM CDT Office Visit [facility] Medical [facility] Cardiology [address] [facility] [address] [place] [address] Ridge Pate MD Coronary artery disease involving [place] coronary artery of [place] heart without angina pectoris (Primary Dx); Essential hypertension; Hyperlipidemia LDL goal <100; Palpitations; MONA (obstructive sleep apnea) from Last 3 Months Allergies Active Allergy [...] 25 mg tabletIndications :Coronary artery disease involving [place] coronary artery of [place] heart without angina pectoris,Essentia l hypertension Take 1 tablet (25 mg total) by mouth daily 90 tablet 3 4 11/21/19 Active Active Problems Problem Noted Date Diagnosed Date MONA (obstructive sleep apnea) 06/18/2024 Coronary artery disease invo lving [place] coronary artery of [place] heart without angina pectoris 11/06/2022 Palpitations 11/07/2020 [...] on file Legal Sex Female 11:59 PM GHOST WRITER Gender Identity Not on file Sexual Orientation [...] 06/18/2024 9:18 AM CDT Plan of Treatment Not on file Procedures Procedure Name Priority Date/Time Associated Diagnosis Comments SCREENING MAMMOGRAM BILATERAL W LETY Schedule Routine, Read Routine (OP Routine) 02/29/2024 9:41 AM GHOST WRITER Screening mammogram, encounter for from Last 3 Months or Most Recently Relevant to Health Maintenance Results * Screening Mammogram Bilateral W Lety (02/29/2024 9:41 AM GHOST WRITER) Anatomical Region Laterality Modality Breast Bilateral Mammography Narrative 03/02/2024 4:49 PM GHOST WRITER Mammogram Technique: Bilateral Digital Breast Tomosynthesis, Bilateral C-view 2D Screening mammogram. Views obtained: bilateral craniocaudal and bilateral mediolateral oblique. Computer Aided Detection was performed. Mammogram Findings: The present examination has been compared to prior imaging studies performed at [facility] on 12/24/2020, 01/27/2022 and 01/29/2023. There are [...] compared to prior imaging studies performed at [facility] on 12/24/2020, 01/27/2022 and 01/29/2023. There are [...] Health Maintenance Insurance MEDICARE COMMERCIAL GENERIC MEDICARE COMMERCIAL GENERIC MEDICARE [place] [id number] H & W MCR SUPPLEMENT Care Teams Road Advisor Relationship Specialty Start Date End Date Ariela Fowler MD PCP - General Family Medicine 05/14/23 Danis Mora MD Referring Physician Obstetrics and Gynecology 07/22/18
== END 2024-09-02 07:47 | disposition home or self-care (01) ==
LOC: ANHIMG 07:48
PROVIDERS: PCP Family Medicine; Visit Provider Family Medicine
DX: Z78.0 Asymptomatic menopausal state (principal); M85.852 Other specified disorders of bone density and structure, left thigh; M85.851 Other specified disorders of bone density and structure, right thigh
CPT/HCPCS: 77080